=== PATIENT | male | born 1960 | race Caucasian/White ===

== ENCOUNTER 2025-05-18 17:26 | Emergency (ER) | payer BC, SELFPAY ==
[2025-05-18 17:32] VITALS: BP 160/87
[2025-05-18] MEDS: MOTRIN 600 MG PO (19:02)
[2025-05-18] MEDS: ADACEL 0.5 ML IM (19:03)
--- NOTE | 2025-05-18 20:17 | ED.MUSCINJ ---
HPI-Injury
General
Chief Complaint: Fall
Time Seen by Provider: 05/18/25 18:36
Nursing documentation reviewed up to this point in time: agreed with
History of Present Illness-Injury
Initial Injury comments:
65-year-old male presents to the ER for evaluation of injury to his chin, chest and right lower extremity after he fell while on a ladder. Patient states that he slid down the ladder as the ladder collapsed beneath him. He denies head strike or
loss of consciousness. No vomiting. No change in vision. Patient reports pain with mouth opening and persistent bleeding from the laceration to his chin. He denies any malocclusion. Patient denies neck pain or paresthesias to his arms or legs.
Patient reports some discomfort with deep breathing, mainly in the center of the chest, where his chest struck the ladder on the way down. He denies feeling short of breath. He reports injury to his right lower extremity with persistent bleeding
prior to arrival. He has been able to ambulate. He does not take any blood thinners. He is unsure of his last tetanus booster.
Past History
Past History
ED Past Medical History: None
Phy Exam
Physical Exam
Physical Exam:
Patient is awake, alert, appears in no acute distress, head is NCAT, PERRL, EOMI, patient is wearing glasses, bilateral tympanic membranes are normal, no hemotympanum, mucous membranes moist, pain at bilateral TMJs with mouth opening, no
malocclusion, no crepitus or obvious deformity on palpation of the facial bones, dentition intact, 2 cm full-thickness laceration present on the undersurface of the chin with exposure of subcutaneous fat, bleeding controlled with direct pressure,
conjunctiva pink, heart regular rate and rhythm without murmurs or ectopy, lungs are clear to auscultation without wheezes rales or rhonchi, pain is reproducible on palpation along the sternum, no crepitus, no ecchymosis, no abnormal chest wall
excursion,no JVD, abdomen is soft and nontender on palpation, extremities without edema, right lower extremity with 1.5 cm full-thickness laceration present along the medial mid lower leg, there is also a 3 cm partial-thickness abrasion on the
anterior mid lower leg, there is surrounding ecchymosis, intact sensation to light touch symmetric x 4 extremities, no dysdiadochokinesia, no ataxia, no pronator drift, GCS is 15
Injury Course
Orders/Labs/Results
Orders:
Orders
05/18/25 18:51
[address] Cont[address] [CT Facial Bones W/o Iv Contras] Urgent
Comment: BL jaw pain
Reason For Exam: trauma
CR Chest - 2 Views Urgent
Comment: pain in mid chest after struck ladder
Reason For Exam: trauma
05/18/25 18:52
Ibuprofen [Motrin] 600 mg PO NOW STA
Tetanus/Diphth/Acelpertussis [Adacel] 0.5 ml IM .ONCE ONE
Procedures
Laceration Closure
Chin and right lower extremity:
Status of Wound: clean
Size of Wound in cm: 3.5
Description of Wound Edges: sharp
Preparation: cleaned with saline
Anesthesia: 1% Lidocaine with epi (7 mL)
Revision/Debridement: routine- no revision
Wound exploration: extensive cleaning of contaminated wound and explored to base- no FB
Type of Closure: single layer closure and interrupted sutures
Skin Closure Material: 4-0 nylon
Number of sutures: 8
Additional information:
Chin laceration was closed with 5 interrupted sutures. Right lower extremity laceration was closed with 3 interrupted sutures. Wound edges well-approximated. Patient tolerated well
MDM/Problems Addressed
Differential Diagnosis Includes:
Differential diagnosis to consider but not limited to mandible fracture, soft tissue injury, rib fracture, pneumothorax, along with other etiologies considered
*Radiology
Radiology exam reviewed: preliminary read by ED provider (I independently viewed and interpreted x-ray of the chest showing no fracture, no malalignment, no pneumothorax, clear lungs) and radiology read reviewed (No facial bone fracture)
*Pulse Oximetry
SaO2: 98
Oxygen Mode of Delivery: Room air
Patient hypoxic: no
*Critical Care Note
Total Time (30-74mins, 75-104mins- exclusive of procedures): Not Applicable
Update Note
Update Note:
I discussed with patient no red flag warning symptoms necessitating CT of the head or cervical spine. Patient agrees with plan for CT imaging of facial bones only. Will also obtain x-ray of the chest. He is declining any need for analgesia at the
current time. Patient is ordered tetanus booster.
2105: I discussed with patient and significant other present at bedside no evidence for acute traumatic process. I discussed with them continued supportive treatment and strict return precautions including infection warnings and wound care. They
expressed understand discharge plan and have no questions at the current time.
ED Attending Note
-
Portions of this chart may have been created with voice recognition software.� Occasional wrong word or��sound alike� substitutions may have occurred due to the inherent limitations of voice recognition software.
Discharge Plan
Departure
Patient Disposition: Home (Routine Discharge)
Date of Disposition: 05/18/25
Time of Disposition: 21:06
Patient with high blood pressure during this ER visit?: No
Discharge Problem:
Need for [id number]-[id number]-[id number] (Tdap) vaccine, Chin laceration, Laceration of leg, Chest wall contusion, Leg abrasion and contusion, Contusion of jaw
Instructions: Laceration Repair With Stitches (DC), Skin Abrasions (DC), Contusion
Activity Restrictions/Additional Instructions:
Maintain current dressings for 24 hours. After this time you may remove dressings and wash with soap and water twice daily. Please elevate your leg and apply ice for 20 minutes off-and-on in order to help with pain and swelling. You may use
[id number] Tylenol and ibuprofen as needed for discomfort. You may want to follow a soft diet for the next few days given jaw discomfort. Please follow-up with your primary care physician in 1 week for reevaluation and suture removal.
Return to the ER for any concerns.
Interventions
Interventions:
*Risk Screen - Suicide Last Done: 05/18/25 17:32
ED-Musculoskeletal Assessment Last Done: 05/18/25 18:15
ED- Neurological Assessment Last Done: 05/18/25 18:15
ED-Skin Assessment Last Done: 05/18/25 18:15
Discharge Date and Time
Print Language: SPANISH
[2025-05-18 21:06] VITALS: BP 148/66
== END 2025-05-18 21:15 | disposition home or self-care (01) ==
LOC: EMR 17:26
PROVIDERS: EMERGENCY PHYSICIAN Emergency Medicine; FAMILY PHYSICIAN Student in an Organized Health Care Education/Training Program
DX: S01.81XA Laceration without foreign body of other part of head, initial encounter (principal); S81.811A Laceration without foreign body, right lower leg, initial encounter; S20.214A Contusion of middle front wall of thorax, initial encounter; S80.11XA Contusion of right lower leg, initial encounter; S80.811A Abrasion, right lower leg, initial encounter; W11.XXXA Fall on and from ladder, initial encounter; Z23 Encounter for immunization
CPT/HCPCS: 99284; 12011; 12001; 90471; 70486; 71046; 90715